=== PATIENT | female | born 1980 | race American Indian/Alaskan Native ===

== ENCOUNTER 2017-08-27 20:51 | Inpatient (IN) | payer SELFPAY ==
[2017-08-27 22:24] LABS: BASO # 0.1 K/uL (0.0-0.2); EOS # 0.1 K/uL (0.0-0.7); EOS % 1.1 % (0.0-4.0); HEMOGLOBIN 13.1 g/dL (11.0-16.0); LYMPH # 3.1 K/uL (1.0-4.3); LYMPH % 34.8 % (20.0-40.0); MEAN CELL VOLUME 89.5 fL (81.0-99.0); MEAN CORPUSCULAR HEMOGLOBIN 30.4 pg (27.0-31.0); MEAN PLATELET VOLUME 9.6 fL (7.2-11.7); MONO # 0.8 K/uL (0.0-0.8); MONO % 8.6 % (0.0-10.0); NEUT # 4.9 K/uL (1.8-7.0); NEUT % 54.5 % (50.0-75.0); NRBC % 0.1 % (0.0-2.0); RBC 4.3 Mil/uL (3.80-5.20)
[2017-08-27 22:26] LABS: HCG,QUALITATIVE URINE NEGATIVE (NEGATIVE)
[2017-08-27 22:28] LABS: SQUAMOUS EPITHIAL 13 /hpf (0-5); URINE BACTERIA FEW (<OCC); URINE BILIRUBIN NEGATIVE (NEGATIVE); URINE BLOOD 1+ (NEGATIVE); URINE CLARITY Hazy (Clear); URINE COLOR Amber (YELLOW); URINE GLUCOSE (UA) NORMAL (Normal); URINE LEUKOCYTE ESTERASE NEG Leu/uL (Negative); URINE NITRATE NEGATIVE (NEGATIVE); URINE PROTEIN 3+ mg/dL (NEGATIVE)
[2017-08-27 22:36] LABS: ALB/GLOB RATIO 1.3 (1.0-2.1); ALBUMIN 4.3 g/dL (3.5-5.0); ALT/SGPT 39 U/L (9-52); AST/SGOT 44 U/L (14-36); BLOOD UREA NITROGEN 7 mg/dL (7-17); CALCIUM 9.1 mg/dl (8.6-10.4); GFR AFRICAN-AMERICAN > 60; GFR NON-AFRICAN AMERICAN > 60
[2017-08-27 22:39] LABS: BARBITURATES, UR NEGATIVE (NEGATIVE); BENZODIAZEPINES, UR NEGATIVE (NEGATIVE); OPIATES, UR NEGATIVE (NEGATIVE); PHENCYCLIDINE, UR NEGATIVE (NEGATIVE)
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
[2017-08-28] MEDS ORDERED: Potassium Chloride 20 mEq/15 ml LIQ UD PO STA (06:11)
[2017-08-28] MEDS ORDERED: Potassium Chloride 10 mEq ER Tab PO STA (06:15)
[2017-08-28] MEDS ORDERED: Potassium Chloride 20 mEq/15 ml LIQ UD ONE (06:16)
[2017-08-28] MEDS ORDERED: Potassium Chloride 10 mEq ER Tab PO ONE (06:21)
[2017-08-28] MEDS ORDERED: Potassium Chloride 20 mEq ER Tab PO ONE (06:26)
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
--- NOTE | 2017-08-28 12:52 | PCM.BM ---
<BernardoJenny masonanta - Last Filed: 08/28/17 12:49> Treatment Plan Problems - Problems identified on initial assessmt Delusion Date Initiated: 08/28/17 Time Initiated: 12:50 Assessment reference: NA Status: Active Depression Date Initiated: 08/28/17 Time Initiated: 12:50 Assessment reference: NA Status: Active Treatment assets and liabiliti Patient Assests: physically healthy Patient Liabilities: live alone, relationship conflicts, substance abuse - Milieu Protocol Maintain good personal hygiene: every shift Encourage regular showers, every shift Remind patient to perform daily oral care, every shift Assist patient to perform ADL's Maintain personal safety: every shift Educate patient to report safety concerns to staff, every shift Monitor environment for contraband/sharps Medication safety: Monitor for expected outcome, potential side effects: every shift, Assess barriers to learning: every shift, Assess readiness for medication education: every shift <Katalina Montero - Last Filed: 08/29/17 10:49> - Diagnosis (1) Schizoaffective disorder Status: Acute Interventions: 08/29/17 10:49 * Assess/adjust medications daily and /or as needed * See patient on an individual basis 7x/week to assess status of hallucinations * Discuss risks, benefits, side effects and alternatives of medications * (2) Cannabis abuse Status: Acute Interventions: 08/29/17 10:49 * Assess 7x/week regarding severity of withdrawal * Educate regarding risks, benefits, side effects and alternatives of medications * Use Motivational Interviewing for abstinence * Use CBT for relapse prevention * Medication management for withdrawal symptoms * Encourage medication assisted treatment * <Gladys Lentz - Last Filed: 08/29/17 10:51> Family Contact Family involvement: Family/SO is involved Family contact: Patient declines to allow family contact at present - Goals for Treatment Patient goals for treatment: "I need to get my car." Discharge/Continuing Care - Education Needs Education Needs: Patient Medication, Patient Coping Skills - Discharge Discharge Criteria: Tolerates medication w/o severe side effects, Reduction of target symptoms Discharge to:: Home - Treatment Team Participation Discussed with Family/SO: No Was Patient/Family/SO present at Treatment Team Meeting: Yes
--- NOTE | 2017-08-29 10:50 | PCM.PYCHPN ---
Psychiatric Progress Note - Psychiatric Progress Note Patient seen today, length of contact: 17 min Patient Chief Complaint: "People are after me in [place]" Problems Identified/Issues Discussed: Patient was seen and examined, chart was reviewed and discussed with staff. Pt remained disorganized and internally preoccupied throughout the interview. When asked how she ended up on the hospital, the pt stated that her father took her and her children to [place]. After which, she states she moved to [place] with her babies. She said that they are after her in [place] and that she does not like it there so she came back to [place] because no one will come after me here. 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 The reports the aunt told her to take her to [facility]. 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 The patient exhibited disorganized thoughts and portrayed flight of ideas. Her thoughts are very paranoid in nature as she thinks that people are after her and her children. The patients speech was very rapid and pressured. The patient is compliant with medications. Patient needs more time to stabilize. Support and psychoeducation provided. Medication Change: Yes (Start Depakote) Medical Record Reviewed: Yes Mental Status Examination - Cognitive Function Orientation: Person, Place, Situation, Time Memory: Intact Attention: WNL Concentration: Poor Association: Loose Fund of Knowledge: Poor Decription of patient's judgement and insights: poor - Mood Mood: Depressed, Anxious - Affect Affect: Broad - Speech Speech: Pressured - Formal Thought Process Formal Thought Process: Hallucinations, Delusions, Paranoia, Loosening of associations, Flight of ideas, Circumstantial - Suicidal Ideation Suicidal Ideation: No - Homicidal Ideation Homicidal Ideation: No Goal/Treatment Plan - Goal/Treatment Plan Need for Continued Stay: Discharge may exacerbated symptoms, Severe functional impairment Progress Toward Problem(s) and Goals/Treatment Plan: Schizoaffective disorder bipolar type -CBT -Psychoeducation -Supportive therapy, group therapy, individual therapy -Prolixin 5 mg by mouth twice a day -Klonopin 1 mg PO BID -Cogentin 1 mg PO BID -Trazodone 50 mg by mouth daily at bedtime -Continue medications, monitor for side effects -Start Depakote 250 mg PO BID Cannabis use disorder moderate -Monitor signs and symptoms -Use [place] for abstinence - Smoking Cessation Smoking Cessation Initiated: No
[2017-08-30] MEDS: Benzocaine/Menthol (Cepacol) Lozenge MT PRN ×2 (05:29→20:24)
[2017-08-30 06:18] VITALS: O2SAT 98
[2017-08-30 08:14] LABS: ALB/GLOB RATIO 1.2 (1.0-2.1); ALBUMIN 4.2 g/dL (3.5-5.0); ALT/SGPT 46 U/L (9-52); AST/SGOT 37 U/L (14-36); BLOOD UREA NITROGEN 8 mg/dL (7-17); CALCIUM 9.2 mg/dl (8.6-10.4); GFR AFRICAN-AMERICAN > 60; GFR NON-AFRICAN AMERICAN > 60
[2017-08-30] MEDS: Divalproex 250 mg DR Tab PO SCH ×2 (10:52→17:59)
--- NOTE | 2017-08-30 16:25 | PCM.PYCHPN ---
Psychiatric Progress Note - Psychiatric Progress Note Patient seen today, length of contact: 18 min Patient Chief Complaint: "My parents are getting to me" Problems Identified/Issues Discussed: The patient was seen and examined at beside, chart was reviewed and discussed with staff. Patient reports wanting to speak with her children last night but nobody answered so she called 911. She reports that she did not want to take her meds last night, reporting I am not stupid, no one knows what it's like to be a mother, I helped my mother. She states my parents are getting to me and I need peace of mind, I cannot stand to be alone, my father and uncle dropped me off here and left me. She reports trying to keep people from following her but denies hearing voices or visual hallucinations. The pt reports not sleeping well and that she wants cannabis for sleep stating if I had weed in [place] , I would not have come here. 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 The patient appears disheveled, lying in bed. The patient does not maintain good eye contact, she is drowsy and appears to be fighting off sleep, displaying a flat affect. The patient is easily distracted and very talkative. She is very talkative, speaking in a pressured manner. She displays disorganized thoughts which are circumstantial and tangential in nature. The patient appears internally preoccupied, lacks insight, good judgement, and attention. The patient is compliant with medications. Patient needs more time to stabilize. Support and psychoeducation provided. Medication Change: Yes (Start Depakote) Medical Record Reviewed: Yes Mental Status Examination - Cognitive Function Orientation: Person, Place, Situation, Time Memory: Impaired Attention: Poor Concentration: Poor Association: Loose Fund of Knowledge: Poor Decription of patient's judgement and insights: poor - Mood Mood: Depressed, Anxious - Affect Affect: Constricted - Speech Speech: Pressured - Formal Thought Process Formal Thought Process: Hallucinations, Delusions, Paranoia, Loosening of associations, Flight of ideas, Circumstantial - Suicidal Ideation Suicidal Ideation: No - Homicidal Ideation Homicidal Ideation: No Goal/Treatment Plan - Goal/Treatment Plan Need for Continued Stay: Discharge may exacerbated symptoms, Severe functional impairment Progress Toward Problem(s) and Goals/Treatment Plan: Schizoaffective disorder bipolar type -CBT -Psychoeducation -Supportive therapy, group therapy, individual therapy -Prolixin 5 mg by mouth twice a day -Klonopin 1 mg PO BID -Cogentin 1 mg PO BID -Trazodone 50 mg by mouth daily at bedtime -Continue medications, monitor for side effects -Start Depakote 250 mg PO BID Cannabis use disorder moderate -Monitor signs and symptoms -Use [place] for abstinence
[2017-08-31] MEDS: Benzocaine/Menthol (Cepacol) Lozenge MT PRN ×3 (05:15→19:34)
[2017-08-31 06:52] VITALS: RESP 18; TEMP 98.3
[2017-08-31] MEDS: Divalproex 250 mg DR Tab PO SCH ×2 (09:57→17:04)
--- NOTE | 2017-08-31 10:10 | PCM.PYCHPN ---
Psychiatric Progress Note - Psychiatric Progress Note Patient seen today, length of contact: 17 min Patient Chief Complaint: "I don't want medication" Problems Identified/Issues Discussed: The patient was seen and examined at beside, chart was reviewed and discussed with staff. Patient reports that she no longer wants to take her medications because they "make me sleepy." The patient also reports that she wants Ativan and " I promise to stop smoking weed if you give me Ativan. I won't smoke around my babies either. I know that's bad." The patient is pacing the halls and appears disheveled. The patient maintains good eye contact, her mood is labile and she is very talkative. She displays disorganized thoughts which are circumstantial and tangential in nature and is easily distracted. The patient lacks insight, good judgement, and attention. Patient needs more time to stabilize. Support and psychoeducation provided. Medication Change: Yes (increase prolixin) Medical Record Reviewed: Yes Mental Status Examination - Cognitive Function Orientation: Person, Place, Situation, Time Memory: Impaired Attention: Poor Concentration: Poor Association: Loose Fund of Knowledge: Poor Decription of patient's judgement and insights: poor - Mood Mood: Depressed, Anxious - Affect Affect: Constricted - Formal Thought Process Formal Thought Process: Hallucinations, Delusions, Paranoia, Loosening of associations, Flight of ideas, Circumstantial - Suicidal Ideation Suicidal Ideation: No - Homicidal Ideation Homicidal Ideation: No Goal/Treatment Plan - Goal/Treatment Plan Need for Continued Stay: Discharge may exacerbated symptoms, Severe functional impairment Progress Toward Problem(s) and Goals/Treatment Plan: Schizoaffective disorder bipolar type -CBT -Psychoeducation -Supportive therapy, group therapy, individual therapy -Prolixin 10 mg by mouth twice a day -Klonopin 1 mg PO TID -Cogentin 1 mg PO BID -Trazodone 50 mg by mouth daily at bedtime -Continue medications, monitor for side effects -Depakote 250 mg PO BID Cannabis use disorder moderate -Monitor signs and symptoms -Use [place] for abstinence - Smoking Cessation Smoking Cessation Initiated: No
--- NOTE | 2017-08-31 14:12 | RAD ---
HISTORY: clearance for transfer to involuntary bed at [facility] [place] COMPARISON: None available. TECHNIQUE: Chest, one view. FINDINGS: Examination limited by habitus. LUNGS: No focal consolidation. Please note that chest x-ray has limited sensitivity for the detection of pulmonary masses. PLEURA: No significant pleural effusion identified. No definite pneumothorax . CARDIOVASCULAR: Heart size appears within normal limits. OSSEOUS STRUCTURES: No acute osseous abnormality identified. VISUALIZED UPPER ABDOMEN: Mild elevation of the right hemidiaphragm. OTHER FINDINGS: None. IMPRESSION: No focal consolidation, significant pleural effusion, or definite pneumothorax identified.
[2017-08-31 15:56] VITALS: BP 101/68; PULSE 97
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
--- NOTE | 2017-09-01 12:11 | CARD ---
APPROVED REPORT EKG Measurement Heart [id number] AZ 150P-5 [id number] <Conclusion> Normal sinus rhythm Nonspecific T wave abnormality Prolonged QT Abnormal ECG
== END 2017-08-31 22:45 | DRG 885 ==
LOC: C.ER 20:51 → EEVIPCON 08-28 09:48 → C.5E 08-28 09:48
PROVIDERS: ADMIT Psychiatry & Neurology Psychiatry; ATTEND Psychiatry & Neurology Psychiatry
PROC: GZHZZZZ Group Psychotherapy (ICD-10-PCS; principal; 2017-08-28)
PROC: GZ58ZZZ Individual Psychotherapy, Cognitive-Behavioral (ICD-10-PCS; 2017-08-28)
PROC: GZ56ZZZ Individual Psychotherapy, Supportive (ICD-10-PCS; 2017-08-28)
DX: F25.0 Schizoaffective disorder, bipolar type (principal); F12.20 Cannabis dependence, uncomplicated; F43.10 Post-traumatic stress disorder, unspecified; Z62.810 Personal history of physical and sexual abuse in childhood; Z79.899 Other long term (current) drug therapy; Z81.8 Family history of other mental and behavioral disorders